=== PATIENT | female | born 2000 | race Caucasian/White ===

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

== ENCOUNTER 2019-01-11 14:39 | Emergency (ER) | payer MEDICAID ==
[~2019-01-11] VITALS: Ht 162.6 cm; Wt 84.5 kg
--- NOTE | 2019-01-11 15:08 | NUR ---
Pt states that she does have head pain. Now has started to mention chest and back pain. Pt advised that she went to [facility] several days ago and was sent to a surg. currently waiting on approval from insurance.
[2019-01-11] MEDS ORDERED: ketorolac tromethamine 15mg/ml inj. IM ONE (15:40)
--- NOTE | 2019-01-11 15:55 | NUR ---
Addie schmitt in EDM - 01/11/19 at 1559 by NIKOLAI UA pediatric bag placed at this time per PA order.
[2019-01-11 16:29] LABS: URINE HCG NEGATIVE (NEG)
[2019-01-11 16:43] VITALS: BP 116/77
== END 2019-01-11 16:44 | disposition home or self-care (01) ==
LOC: ER 14:39
DX: G43.909 Migraine, unspecified, not intractable, without status migrainosus (principal); F17.200 Nicotine dependence, unspecified, uncomplicated; F12.90 Cannabis use, unspecified, uncomplicated; Z90.49 Acquired absence of other specified parts of digestive tract; Z79.899 Other long term (current) drug therapy
CPT/HCPCS: 81025; 96372; 99283; J1885

== ENCOUNTER 2019-03-25 11:03 | Emergency (ER) | payer MEDICAID ==
[~2019-03-25] VITALS: Ht 170.2 cm; Wt 79.0 kg
--- NOTE | 2019-03-25 11:28 | NUR ---
patient reports abdominal pain at this time.
[2019-03-25 11:42] LABS: BASOPHILS % (AUTO) 0.4 % (0-1); EOSINOPHILS # (AUTO) 0.2 X10'3 (0-0.9); EOSINOPHILS % (AUTO) 1.9 % (0-6); HEMATOCRIT 37.4 % (35.0-45.0); HEMOGLOBIN 12.7 g/dl (12.0-16.0); LYMPHOCYTES # (AUTO) 2.9 X10'3 (1.1-4.8); LYMPHOCYTES % (AUTO) 28.2 % (21-51); MEAN CORPUSCULAR HEMOGLOBIN 29.6 PG (27.0-31.0); MEAN CORPUSCULAR VOLUME 87.2 FL (78-98); MEAN PLATELET VOLUME 8.3 FL (7.4-10.4); MONOCYTES # (AUTO) 0.5 X10'3 (0-0.9); MONOCYTES % (AUTO) 5.1 % (2-12); NEUTROPHILS # (AUTO) 6.7 X10'3 (1.8-7.7); NEUTROPHILS % (AUTO) 64.4 % (42-75); PLATELET COUNT 214 X10'3 (140-440); RED BLOOD COUNT 4.29 X10'6 (4.20-5.60); RED CELL DISTRIBUTION WIDTH 13.8 % (11.5-14.5); WHITE BLOOD COUNT 10.5 X10'3 (4.5-11.0)
[2019-03-25 11:57] LABS: ALANINE AMINOTRANSFERASE 28 U/L (12-78); ALBUMIN 3.6 G/DL (3.4-5.0); ALBUMIN/GLOBULIN RATIO 1.3 (1.1-1.5); ALKALINE PHOSPHATASE 52 IU/L (20-180); ANION GAP 12 (8-16); ASPARTATE AMINO TRANSFERASE 12 U/L (10-37); BILIRUBIN,TOTAL 0.4 MG/DL (0.1-1.0); BLOOD UREA NITROGEN 13 MG/DL (7-18); BUN/CREATININE RATIO 15.1 (6.6-38.0); CALCIUM 8.5 MG/DL (8.5-10.1); CHLORIDE 105 MMOL/L (99-107); CREATININE 0.86 MG/DL (0.40-0.90); GLUCOSE 98 MG/DL (70-104); LIPASE 64 U/L (73-393); POTASSIUM 3.5 MMOL/L (3.5-5.1); SODIUM 138 MMOL/L (135-145); TOTAL CARBON DIOXIDE 20.6 MMOL/L (24-32); TOTAL PROTEIN 6.4 G/DL (6.4-8.2); eGFR 84 ML/MIN
[2019-03-25 13:09] LABS: CLARITY,URINE SLIGHTLY CLOUDY (Clear); COLOR,URINE STRAW (Yellow); GLUCOSE, URINE NEGATIVE (Neg); KETONES,URINE NEGATIVE (Neg); LEUKOCYTE ESTERASE ,URINE NEGATIVE (Neg); NITRITES, URINE NEGATIVE (Neg); OCCULT BLOOD,URINE TRACE-INTACT (Neg); PH,URINE 7.5 (4.8-8.0); PROTEIN,URINE NEGATIVE (Neg); URINE HCG NEGATIVE (NEG); UROBILINOGEN,URINE 0.2 E.U/dL (0.2-1.0)
[2019-03-25 13:10] LABS: UA COLLECTION TYPE CLN CATCH MIDSTREAM
[2019-03-25 13:16] LABS: BACTERIA,URINE 2+ /HPF (Neg); RBC,URINE 0-2 /HPF (0-2); SQUAMOUS EPITHELIAL CELL,UR MANY /LPF (FEW); WBC,URINE 0-4 /HPF (0-4)
[2019-03-25 13:17] LABS: MUCUS STRANDS NONE SEEN /LPF (Neg)
[2019-03-25 13:18] VITALS: BP 103/45
== END 2019-03-25 13:19 | disposition home or self-care (01) ==
LOC: ER 11:03
DX: R07.89 Other chest pain (principal); R05 Cough; R10.84 Generalized abdominal pain; F17.200 Nicotine dependence, unspecified, uncomplicated; F12.90 Cannabis use, unspecified, uncomplicated; F10.99 Alcohol use, unspecified with unspecified alcohol-induced disorder; Z90.49 Acquired absence of other specified parts of digestive tract; Z79.899 Other long term (current) drug therapy; Y90.9 Presence of alcohol in blood, level not specified
CPT/HCPCS: 36415; 71045; 80053; 81001; 81025; 83690; 84484; 85025; 93005; 99284

== ENCOUNTER 2019-04-27 02:02 | Emergency (ER) | payer MEDICAID ==
[~2019-04-27] VITALS: Ht 162.6 cm; Wt 87.0 kg
[2019-04-27 02:04] VITALS: BP 123/74
--- NOTE | 2019-04-27 02:30 | NUR ---
DR. RAMIREZ AT BEDSIDE ASSESSING PATIENT
[2019-04-27] MEDS ORDERED: VALA10002 PO (02:46)
[2019-04-27] MEDS ORDERED: CEPH500C5 PO (02:46)
[2019-04-27] MEDS ORDERED: cephalexin 250mg capsule PO ONE (02:50)
[2019-04-27] MEDS ORDERED: valacyclovir 500mg tablet PO ONE (02:50)
[2019-04-27] MEDS ORDERED: valacyclovir 500mg tablet PO SCH (02:50)
== END 2019-04-27 03:13 | disposition home or self-care (01) ==
LOC: ER 02:03
DX: K13.0 Diseases of lips (principal); F17.200 Nicotine dependence, unspecified, uncomplicated; F12.90 Cannabis use, unspecified, uncomplicated; Z79.2 Long term (current) use of antibiotics; Z79.899 Other long term (current) drug therapy; Z90.49 Acquired absence of other specified parts of digestive tract
CPT/HCPCS: 99283

== ENCOUNTER 2019-06-17 17:51 | Emergency (ER) | payer MEDICAID ==
[~2019-06-17] VITALS: Ht 162.6 cm; Wt 86.4 kg
[~2019-06-17 17:51] MED LIST changes: +CEPH500C5 PO; +VALA10002 PO
[2019-06-17 18:57] VITALS: BP 116/67
== END 2019-06-17 18:59 | disposition home or self-care (01) ==
LOC: ER 17:51
DX: J06.9 Acute upper respiratory infection, unspecified (principal); F12.90 Cannabis use, unspecified, uncomplicated; Z72.89 Other problems related to lifestyle; Z90.49 Acquired absence of other specified parts of digestive tract; Z79.899 Other long term (current) drug therapy
CPT/HCPCS: 99281

== ENCOUNTER 2019-08-01 17:19 | Emergency (ER) | payer MEDICAID ==
[~2019-08-01] VITALS: Ht 162.6 cm; Wt 81.8 kg
[2019-08-01 17:39] VITALS: BP 199/171
[2019-08-02] MEDS ORDERED: ONDA4TAB6 PO (15:48)
[2019-08-02] MEDS ORDERED: DICY10CA88 PO (15:48)
== END 2019-08-01 20:17 | disposition left against medical advice (07) ==
LOC: ER 17:20
DX: R10.30 Lower abdominal pain, unspecified (principal); Z53.21 Procedure and treatment not carried out due to patient leaving prior to being seen by health care provider

== ENCOUNTER 2019-08-02 12:26 | Emergency (ER) | payer MEDICAID ==
[~2019-08-02] VITALS: Ht 162.6 cm; Wt 81.8 kg
[2019-08-02 13:02] LABS: BASOPHILS % (AUTO) 0.1 % (0-1); EOSINOPHILS # (AUTO) 0.1 X10'3 (0-0.9); EOSINOPHILS % (AUTO) 0.8 % (0-6); HEMATOCRIT 48.9 % (35.0-45.0); HEMOGLOBIN 16.4 g/dl (12.0-16.0); LYMPHOCYTES # (AUTO) 1.7 X10'3 (1.1-4.8); LYMPHOCYTES % (AUTO) 9.9 % (21-51); MEAN CORPUSCULAR HEMOGLOBIN 29.4 PG (27.0-31.0); MEAN CORPUSCULAR HGB CONC 33.5 g/dL (33.0-36.5); MEAN CORPUSCULAR VOLUME 87.8 FL (78-98); MEAN PLATELET VOLUME 8.3 FL (7.4-10.4); MONOCYTES # (AUTO) 0.9 X10'3 (0-0.9); MONOCYTES % (AUTO) 5.6 % (2-12); NEUTROPHILS % (AUTO) 83.6 % (42-75); PLATELET COUNT 303 X10'3 (140-440); RED BLOOD COUNT 5.56 X10'6 (4.20-5.60); RED CELL DISTRIBUTION WIDTH 13.7 % (11.5-14.5); WHITE BLOOD COUNT 16.7 X10'3 (4.5-11.0)
[2019-08-02 13:15] LABS: ALANINE AMINOTRANSFERASE 16 U/L (12-78); ALBUMIN/GLOBULIN RATIO 1.1 (1.1-1.5); ALKALINE PHOSPHATASE 67 IU/L (20-180); ANION GAP 13 (8-16); ASPARTATE AMINO TRANSFERASE 13 U/L (10-37); BILIRUBIN,TOTAL 0.4 MG/DL (0.1-1.0); BLOOD UREA NITROGEN 11 MG/DL (7-18); BUN/CREATININE RATIO 11.2 (6.6-38.0); CALCIUM 9.6 MG/DL (8.5-10.1); CHLORIDE 106 MMOL/L (99-107); CREATININE 0.98 MG/DL (0.40-0.90); GLUCOSE 114 MG/DL (70-104); LIPASE 75 U/L (73-393); POTASSIUM 4.3 MMOL/L (3.5-5.1); SODIUM 138 MMOL/L (135-145); TOTAL CARBON DIOXIDE 18.7 MMOL/L (24-32); TOTAL PROTEIN 7.8 G/DL (6.4-8.2); eGFR 72 ML/MIN
[2019-08-02] MEDS ORDERED: haloperidol lactate 5mg/ml inj IM ONE (13:25)
[2019-08-02] MEDS ORDERED: dicyclomine 10 MG capsule PO ONE (13:25)
[2019-08-02] MEDS ORDERED: normal saline 1000ML IV soln IVB ONE (13:25)
[2019-08-02] MEDS ORDERED: ketorolac tromethamine 15mg/ml inj. IV ONE (13:25)
[2019-08-02] MEDS ORDERED: ketorolac tromethamine 15mg/ml inj. IM ONE (14:20)
[2019-08-02] MEDS ORDERED: DICY10CA88 PO (15:48)
[2019-08-02] MEDS ORDERED: ONDA4TAB6 PO (15:48)
[2019-08-02 17:35] VITALS: BP 107/57
== END 2019-08-02 16:30 | disposition home or self-care (01) ==
LOC: ER 12:26
DX: R11.2 Nausea with vomiting, unspecified (principal); R10.31 Right lower quadrant pain; R10.32 Left lower quadrant pain; F12.90 Cannabis use, unspecified, uncomplicated; F17.200 Nicotine dependence, unspecified, uncomplicated; Z90.49 Acquired absence of other specified parts of digestive tract
CPT/HCPCS: 36415; 80053; 83690; 85025; 96372; 96374; 99284; J1630; J1885; J7030

== ENCOUNTER 2020-08-05 00:14 | Emergency (ER) | payer MEDICAID ==
[~2020-08-05] VITALS: Ht 162.6 cm; Wt 63.6 kg
[~2020-08-05 00:14] MED LIST changes: -CEPH500C5 PO; +ONDA4TAB6 PO
[2020-08-05 00:23] VITALS: BP 121/71
[2020-08-05] MEDS ORDERED: DOXY100C43 PO (00:48)
[2020-08-05 01:24] LABS: URINE HCG NEGATIVE (NEG)
[2020-08-05] MEDS ORDERED: DOXYCYCLINE 100MG CAPSULE PO STA (01:41)
== END 2020-08-05 01:52 | disposition home or self-care (01) ==
LOC: ER 00:14
DX: S90.822A Blister (nonthermal), left foot, initial encounter (principal); L03.116 Cellulitis of left lower limb; F12.90 Cannabis use, unspecified, uncomplicated; Z90.49 Acquired absence of other specified parts of digestive tract; Z72.89 Other problems related to lifestyle; Z79.899 Other long term (current) drug therapy; X58.XXXA Exposure to other specified factors, initial encounter; Y93.89 Activity, other specified; Y92.89 Other specified places as the place of occurrence of the external cause; Y99.8 Other external cause status
CPT/HCPCS: 81025; 99283

== ENCOUNTER 2020-11-15 21:41 | Emergency (ER) | payer MEDICAID ==
[~2020-11-15] VITALS: Ht 162.6 cm; Wt 77.0 kg
[2020-11-15] MEDS ORDERED: ketorolac trometh. 30mg/ml inj. IV ONE (21:45)
[2020-11-15 21:57] VITALS: BP 105/60
[2020-11-15] MEDS ORDERED: iohexol 300mg/ml 100ml inj. ONE (22:02)
--- NOTE | 2020-11-15 22:08 | NUR ---
pt asked to provide urine sample. she states she "can't go" - advised pt to please try so that we can r\\o before sending her to the CT scan. She continues to state she "can't go" - pt was again asked to simply try. She stands up and says, "this is fucked up" but goes to the bathroom and returns with a sample. urine sent to lab.
[2020-11-15 22:14] LABS: LIPASE 54 U/L (73-393)
[2020-11-15 22:15] LABS: HCG SERUM QL NEGATIVE
[2020-11-15 22:20] LABS: URINE AMPHETAMINE SCREEN POSITIVE (Neg); URINE CANNABINOID SCREEN POSITIVE (Neg); URINE METHADONE SCREEN NEGATIVE (Neg); URINE OPIATE SCREEN POSITIVE (Neg); URINE PHENCYCLIDINE SCREEN NEGATIVE (Neg)
[2020-11-15 22:30] LABS: URINE BARBITUATE SCREEN NEGATIVE (Neg); URINE BENZODIAZEPINES SCREEN NEGATIVE (Neg); URINE COCAINE SCREEN NEGATIVE (Neg)
[2020-11-15] MEDS ORDERED: iohexol 300 MG/1 ML 50ml polymer ONE (22:35)
--- NOTE | 2020-11-15 22:42 | NUR ---
pt went to CT but was brought back to the room by CT stating that she was having burning at the IV site. The IV is patent and flushed with 30cc saline and also will draw back with blood. a second IV was started in the opposite arm which produced good flash and also flushed. Pt stated that this IV was burning as well. The first IV was then flushed again with 40cc of saline. no infiltration noted, no redness or swelling at insertion site. the second IV was removed and the first IV will be used for CT - analytical lab technician also stated that the IV flushed well prior to start of scan.
--- NOTE | 2020-11-15 23:53 | NUR ---
PT NOT COOPERATIVE WITH D\C - SECURITY HAD TO BE CALLED TO ESCORT PT TO LOBBY - SHE HAS BEEN OFFERED A TAXI TO A LOCATION OF HER CHOICE AND TOLD TO LET US KNOW WHEN SHE CAN COME UP WITH A PLAN.
== END 2020-11-15 23:59 | disposition home or self-care (01) ==
LOC: ER 21:41 → EEVIPCON 21:41 → ER 23:59
DX: S30.1XXA Contusion of abdominal wall, initial encounter (principal); R10.30 Lower abdominal pain, unspecified; F12.90 Cannabis use, unspecified, uncomplicated; Z90.89 Acquired absence of other organs; Z90.49 Acquired absence of other specified parts of digestive tract; Z72.89 Other problems related to lifestyle; Z79.2 Long term (current) use of antibiotics; Z79.899 Other long term (current) drug therapy; Y08.89XA Assault by other specified means, initial encounter; Y93.89 Activity, other specified; Y92.89 Other specified places as the place of occurrence of the external cause; Y99.8 Other external cause status
CPT/HCPCS: 36415; 74177; 80305; 83690; 84703; 96374; 99285; J1885; Q9967

== ENCOUNTER 2021-04-23 09:25 | Emergency (ER) | payer MEDICAID ==
[~2021-04-23] VITALS: Ht 160 cm; Wt 77.0 kg
--- NOTE | 2021-04-23 09:52 | NUR ---
CALLED PT TO TRIAGE, WAS IN BATHROOM. AFTER 15 MINUTES OR SO STILL NOT IN LOBBY. SSECURITY CALLED, RESTROOM WAS EMPTY
[2021-04-23 10:10] VITALS: BP 131/73
[2021-04-23] MEDS ORDERED: LIDOcaine 1% W/epiNEPHrine 1:200,000 10ml vial IJ ONE (11:35)
[2021-04-23] MEDS ORDERED: LIDOcaine 1% 30ml preserv. free vial IJ ONE (12:35)
[2021-04-23] MEDS ORDERED: DOXY100C43 PO ×2 (14:15)
[2021-04-23] MEDS ORDERED: DOXY100C76 PO (14:19)
== END 2021-04-23 15:30 | disposition home or self-care (01) ==
LOC: ER 09:26
DX: L02.511 Cutaneous abscess of right hand (principal); F12.90 Cannabis use, unspecified, uncomplicated; Z90.89 Acquired absence of other organs; Z90.49 Acquired absence of other specified parts of digestive tract; Z72.89 Other problems related to lifestyle; Z79.2 Long term (current) use of antibiotics; Z79.899 Other long term (current) drug therapy
CPT/HCPCS: 26010; 99283

== ENCOUNTER 2021-04-25 00:06 | Emergency (ER) | payer MEDICAID ==
[~2021-04-25] VITALS: Ht 162.6 cm; Wt 70.0 kg
[~2021-04-25 00:06] MED LIST changes: +DOXY100C43 PO; +DOXY100C76 PO
[2021-04-25 00:50] VITALS: BP 128/75
--- NOTE | 2021-04-25 07:01 | NUR ---
PT STATES SHE WAS GIVEN A RX FOR ABX 2 DAYS AGO WHEN SHE WAS LAST HERE BUT WAS NOT CORRINA TO PICK IT UP BECAUSE "THE PHARMACY SAID IT WAS CHARGED TO ANOTHER PHARMACY." PT IS REQUESTING TO KNOW WERE WE SENT IT. I EXPLAINED THAT THE DR SENDS THE RX TO THE PHARMACY OF HER REQUEST, PT STATES SHE DOESNT REMEMBER AND "SAYS IT WILL BE EASIER IF WE JUST FIGURE IT OUT."
[2021-04-25] MEDS ORDERED: SULF1TAB49 PO (07:34)
[2021-04-25] MEDS ORDERED: sulfamethoxazole/trimethoprim DS (800/160mg) tablet PO ONE (07:35)
== END 2021-04-25 07:51 | disposition home or self-care (01) ==
LOC: ER 00:07
DX: L03.011 Cellulitis of right finger (principal); F12.90 Cannabis use, unspecified, uncomplicated; Z90.89 Acquired absence of other organs; Z90.49 Acquired absence of other specified parts of digestive tract; Z72.89 Other problems related to lifestyle; Z79.2 Long term (current) use of antibiotics; Z79.899 Other long term (current) drug therapy
CPT/HCPCS: 99283

== ENCOUNTER 2021-08-22 22:51 | Emergency (ER) | payer MEDICAID ==
[~2021-08-22 22:51] MED LIST changes: -DOXY100C43 PO; -DOXY100C76 PO
== END 2021-08-22 23:23 | disposition left against medical advice (07) ==
LOC: ER 22:51
DX: K59.00 Constipation, unspecified (principal); Z53.21 Procedure and treatment not carried out due to patient leaving prior to being seen by health care provider

== ENCOUNTER 2021-09-07 23:49 | Emergency (ER) | payer MEDICAID ==
[~2021-09-07] VITALS: Ht 162.6 cm; Wt 90.5 kg
[2021-09-08 07:05] VITALS: BP 103/55
[2021-09-08] MEDS ORDERED: ACET500C5 PO (09:52)
[2021-09-08] MEDS ORDERED: IBUP-1985 PO (09:52)
[2021-09-08] MEDS ORDERED: CEPH-585 PO (09:52)
== END 2021-09-08 07:13 | disposition left against medical advice (07) ==
LOC: ER 23:50
DX: M79.604 Pain in right leg (principal); M79.605 Pain in left leg; Z53.21 Procedure and treatment not carried out due to patient leaving prior to being seen by health care provider

== ENCOUNTER 2021-09-08 07:14 | Emergency (ER) | payer MEDICAID ==
[~2021-09-08] VITALS: Ht 162.6 cm; Wt 90.5 kg
[2021-09-08] MEDS ORDERED: ketorolac trometh. 30mg/ml inj. IM ONE (09:10)
[2021-09-08] MEDS ORDERED: acetaminophen 325mg tablet PO ONE (09:10)
[2021-09-08 09:26] VITALS: BP 100/62
[2021-09-08] MEDS ORDERED: CEPH-585 PO (09:52)
[2021-09-08] MEDS ORDERED: IBUP-1985 PO (09:52)
[2021-09-08] MEDS ORDERED: ACET500C5 PO (09:52)
== END 2021-09-08 10:16 | disposition home or self-care (01) ==
LOC: ER 07:14
DX: L55.9 Sunburn, unspecified (principal); L03.116 Cellulitis of left lower limb; F17.200 Nicotine dependence, unspecified, uncomplicated; F12.90 Cannabis use, unspecified, uncomplicated; F15.90 Other stimulant use, unspecified, uncomplicated; Z90.49 Acquired absence of other specified parts of digestive tract; Z72.89 Other problems related to lifestyle; Z79.899 Other long term (current) drug therapy
CPT/HCPCS: 96372; 99283; J1885

== ENCOUNTER 2021-10-25 06:23 | Emergency (ER) | payer MEDICAID ==
[~2021-10-25] VITALS: Ht 162.6 cm; Wt 72.7 kg
[~2021-10-25 06:23] MED LIST changes: +IBUP-1985 PO
[2021-10-25 06:27] VITALS: BP 143/89
== END 2021-10-25 09:34 | disposition left against medical advice (07) ==
LOC: ER 06:25
DX: Z00.8 Encounter for other general examination (principal); Z53.21 Procedure and treatment not carried out due to patient leaving prior to being seen by health care provider

== ENCOUNTER 2024-01-30 14:49 | Emergency (ER) | payer MEDICAID ==
[~2024-01-30] VITALS: Ht 162.6 cm; Wt 77.3 kg
[2024-01-30] MEDS ORDERED: AMOX500C2 PO (15:30)
[2024-01-30] MEDS: ibuprofen tablet 400 MG TABLET PO ONE (15:33)
[2024-01-30] MEDS: amoxicillin 250mg capsule PO ONE (15:34)
[2024-01-30 15:51] VITALS: BP 118/78; PULSE 101; RESP 19; TEMP 98.7; O2SAT 98
== END 2024-01-30 15:56 | disposition home or self-care (01) ==
LOC: ER 14:49
DX: K04.7 Periapical abscess without sinus (principal); K03.81 Cracked tooth; K02.9 Dental caries, unspecified; F12.90 Cannabis use, unspecified, uncomplicated; F15.90 Other stimulant use, unspecified, uncomplicated; Z79.2 Long term (current) use of antibiotics; Z79.1 Long term (current) use of non-steroidal anti-inflammatories (NSAID); Z98.890 Other specified postprocedural states; Z90.49 Acquired absence of other specified parts of digestive tract
CPT/HCPCS: 99283

== ENCOUNTER 2024-04-15 14:25 | Emergency (ER) | payer MEDICAID ==
[~2024-04-15] VITALS: Ht 162.6 cm; Wt 87.9 kg
[2024-04-15 14:27] VITALS: BP 128/73; PULSE 70; O2SAT 98
[2024-04-15] MEDS ORDERED: BUPR1FIL7 SL (15:39)
[2024-04-15] MEDS ORDERED: TRAZ-251 PO (15:40)
[2024-04-15 16:06] VITALS: RESP 16; TEMP 98
[2024-04-16] MEDS ORDERED: BUPR8TAB4 SL (14:44)
== END 2024-04-15 16:08 | disposition home or self-care (01) ==
LOC: ER 14:26
DX: F11.20 Opioid dependence, uncomplicated (principal); Z76.0 Encounter for issue of repeat prescription; G47.00 Insomnia, unspecified; F12.90 Cannabis use, unspecified, uncomplicated; F15.90 Other stimulant use, unspecified, uncomplicated; Z90.49 Acquired absence of other specified parts of digestive tract; Z79.899 Other long term (current) drug therapy
CPT/HCPCS: 99281

== ENCOUNTER 2024-04-16 14:01 | Emergency (ER) | payer MEDICAID ==
[~2024-04-16] VITALS: Ht 162.6 cm; Wt 85.3 kg
[~2024-04-16 14:01] MED LIST changes: +BUPR1FIL7 SL; +TRAZ-251 PO
[2024-04-16 14:15] VITALS: BP 111/67; PULSE 87; RESP 18; TEMP 98.3; O2SAT 99
[2024-04-16] MEDS ORDERED: BUPR8TAB4 SL (14:44)
== END 2024-04-16 14:50 | disposition home or self-care (01) ==
LOC: ER 14:01
DX: F11.20 Opioid dependence, uncomplicated (principal); F12.90 Cannabis use, unspecified, uncomplicated; F15.90 Other stimulant use, unspecified, uncomplicated; Z76.0 Encounter for issue of repeat prescription; Z90.49 Acquired absence of other specified parts of digestive tract
CPT/HCPCS: 99281; 99283

== ENCOUNTER 2024-08-08 03:10 | Emergency (ER) | payer MEDICAID ==
[~2024-08-08] VITALS: Ht 162.6 cm; Wt 80.3 kg
--- NOTE | 2024-08-08 03:33 | Physician Documentation ---
History of Present Illness ~ Chief Complaint: Sore Throat Stated Complaint: THROAT PAIN Time Seen by MD: 03:25 Primary Medical Doctor: Clemente Fair In [facility] Patient presents today with sore throat. Ongoing over the last 24 hours. Denies fever. Medication Reconciliation Allergies: Coded Allergies: No Known Allergies (Unverified , 04/16/24) Scheduled Buprenorphine HCl/Naloxone HCl (Suboxone 12 mg-3 mg Sl Film), 1 STRIP SL BID Ibuprofen (Ibuprofen), 1 TAB PO Q8H Ondansetron Hcl (Zofran), 1 TAB PO Q12H PRN Trazodone HCl (Trazodone HCl), 1 TAB PO HS Valacyclovir HCl (Valtrex), 2 TAB PO ONCE Scheduled PRN Hydrocodone Bit/Acetaminophen (Hydrocodon-Acetaminophn 10-325 tablet), 1 TAB PO Q4H PRN for pain Miscellaneous Medications Home Med List (No Home Medications), (Reported) Past Medical History Past Medical History: No Pertinent History Past Surgical History: appendectomy, cholecystectomy Alcohol Use: Occasionally Drug Use: marijuana, methamphetamine Lives with: Family Occupation: employed, child Review of Systems All Other Systems at this time: Reviewed and Negative Constitutional: Denies: chills, fever Eyes: Denies: pain ENT: Reports: throat pain; Denies: ear pain Respiratory: Reports: cough Gastrointestinal: Denies: abdomen distended, abdominal pain Physical Exam Vital Signs: Temperature: 97.6, Source: Oral, Heart Rate: 95, Respiratory Rate: 18, BP: 117/78, Pulse Oximetry: 99, Weight: 80.300 Oxygen Flow Rate: 0 Physical Exam Well-appearing no distress HEENT bilateral tonsillar exudate No peritonsillar abscess no trismus Progress Results/Orders Results/Orders Orders - CRISTINA INGRAM MD Cult Throat + R/O Beta Strep (08/08/24 04:29) Completed Orders - CRISTINA INGRAM MD Ketorolac Trometh 15mg/Ml Vial (Toradol (08/08/24 03:40) Strep A Rapid (08/08/24 03:36) Lidocaine 2% Viscous (Xylocaine 2% Visco (08/08/24 03:40) Medications Received in ER Medications (Trade) Dose Ordered Sig/Alberto Route PRN Reason Start Time Stop Time Status Last Admin Dose Admin (Toradol injection) 30 mg ONCE ONCE IM 08/08/24 03:40 08/08/24 03:42 DC 08/08/24 03:57 30 MG (Xylocaine 2% Viscous 15mL cup) 15 ml ONCE ONCE MM 08/08/24 03:40 08/08/24 03:41 DC 08/08/24 03:53 15 ML Vital Signs 08/08/24 08/08/24 08/08/24 08/08/24 03:21 03:31 03:33 03:33 Temp 97.6 97.6 Pulse 95 88 Resp 18 17 14 B/P (MAP) 117/78 125/95 (105) Pulse Ox 99 99 O2 Flow Rate 0 0 08/08/24 03:57 Resp 14 Laboratory Tests Test 08/08/24 03:47 Group A Streptococcus Rapid Negative Medical Decision Making Additional Comment Considered strep pharyngitis, mononucleosis, HIV, herpes simplex virus, Bechets , oral aphthous ulcers Departure Disposition: HOME / SELF CARE / HOMELESS Impression: Primary Impression: URI (upper respiratory infection) Qualified Codes: J06.9 - Acute upper respiratory infection, unspecified Additional Impression Text Well-appearing 24-year-old with a sore throat. Tonsillar exudate, no rash, no ocular involvement, no fevers benign-appearing no trismus no peritonsillar abscess. Strep negative. Conservative management Referrals: NO PRIMARY CARE PROVIDER (PCP) Signature Scribe Signature: na Attestation: CRISTINA Jara MD August 08, 2024 03:32
[2024-08-08] MEDS: LIDOcaine 2% Viscous 15ml cup MM ONE (03:53)
[2024-08-08] MEDS: ketorolac trometh 15mg/ml vial 15 MG/ML ML IM ONE (03:57)
[2024-08-08 04:29] LABS: STREP A SCREEN NEGATIVE (Neg)
[2024-08-08 05:13] VITALS: BP 120/78; PULSE 77; RESP 19; TEMP 98; O2SAT 100
== END 2024-08-08 05:22 | disposition home or self-care (01) ==
LOC: ER 03:11
DX: J06.9 Acute upper respiratory infection, unspecified (principal); F12.90 Cannabis use, unspecified, uncomplicated; F15.90 Other stimulant use, unspecified, uncomplicated; Z90.49 Acquired absence of other specified parts of digestive tract; Z79.899 Other long term (current) drug therapy; Z72.89 Other problems related to lifestyle
CPT/HCPCS: 87081; 87880; 96372; 99283; J1885

== ENCOUNTER 2024-11-04 20:55 | Emergency (ER) | payer MEDICAID ==
[~2024-11-04] VITALS: Ht 162.6 cm; Wt 81.8 kg
[2024-11-04 21:04] VITALS: BP 125/74; PULSE 101; O2SAT 100
[2024-11-04] MEDS: LIDOcaine 1% W/epiNEPHrine 1:100,000 20ml vial SQ ONE (23:49)
[2024-11-05 00:43] VITALS: TEMP 97
[2024-11-05] MEDS ORDERED: HYDR-3973 PO (01:12)
[2024-11-05] MEDS ORDERED: SULF1TAB49 PO (01:12)
--- NOTE | 2024-11-05 01:13 | Physician Documentation ---
History of Present Illness ~ Chief Complaint: Abscess Stated Complaint: OPEN SORES Time Seen by MD: 01:07 Primary Medical Doctor: Clemente Fair In Source: patient Mode of Arrival: POV Exam Limitations: no limitations HPI Chief Complaint: Abscess Caveat: None Independent Historians: None History of Present Illness: Patient is a 24-year-old woman who comes in complaining of an abscess in her left axilla and right proximal medial thigh. Patient has a couple areas that she states are already draining because she popped them. Patient denies any fever. Pain is moderate and constant. Review of systems: All systems were reviewed and are negative except for what is indicated in the history of present illness. Past Medical History: None Past Surgical History: None Social History: No tobacco use, no alcohol use, no drug use Medications: Reviewed as documented Nursing Notes Allergies: Reviewed as documented in Nursing Notes Tetanus Within 5 Years: No Medication Reconciliation Allergies: Coded Allergies: No Known Allergies (Unverified , 11/04/24) Scheduled Buprenorphine HCl/Naloxone HCl (Suboxone 12 mg-3 mg Sl Film), 1 STRIP SL BID Ibuprofen (Ibuprofen), 1 TAB PO Q8H Ondansetron Hcl (Zofran), 1 TAB PO Q12H PRN Sulfamethoxazole/Trimethoprim (Bactrim Ds Tablet), 1 TAB PO Q12H Trazodone HCl (Trazodone HCl), 1 TAB PO HS Valacyclovir HCl (Valtrex), 2 TAB PO ONCE Scheduled PRN Hydrocodone Bit/Acetaminophen (Hydrocodon-Acetaminophn 10-325 tablet), 1 TAB PO Q4H PRN for pain Hydrocodone Bit/Acetaminophen (Hydrocodone-Apap 10-325 Tablet), 1 TAB PO TID PRN PRN for pain Miscellaneous Medications Home Med List (No Home Medications), (Reported) Past Medical History Past Medical History: No Pertinent History Past Surgical History: appendectomy, cholecystectomy Smoking Status: Current every day smoker Alcohol Use: Occasionally Drug Use: marijuana, methamphetamine Lives with: Family Occupation: employed, child Review of Systems All Other Systems at this time: Reviewed and Negative ROS Patient denies any other acute symptoms other than above. All other systems are negative Physical Exam Vital Signs: RN Vital Signs have been reviewed: Yes, Temperature: 97.0, Heart Rate: 101, Respiratory Rate: 16, BP: 125/74, Pulse Oximetry: 100, Weight: 81.820 Pulse Oximetry Reflects: adequate oxygenation Physical Exam General Appearance: Mild distress HEENT: Normal OP, moist oral mucosa, PERRL, EOMI Neck: supple, normal ROM, trachea midline Pulmonary: No respiratory distress, CTA, BS equal Cardiac: RRR, no murmur, rub or gallop, Extremities: normal ROM, no swelling, non-tender Skin: intact, dry, warm, no rashes, swollen erythematous and indurated abscess in the right axilla. Small area of erythema without fluctuance the right medial proximal thigh Neuro: AAOx3, speech is clear, no focal motor weakness Psych: normal affect, good eye contact, no apparent hallucination, normal speech Procedures I & D Procedure : Anesthesia: Lidocaine w/ Epi Volume Anesthetic (mls): 5 Blade Size: 11 Prep/Supplies: betadine prep, packing placed Incision: pus drained, blood drained Tolerated Procedure Well?: yes, no complications Progress Results/Orders Results/Orders Completed Orders - ELIZABETH HAMPTON MD Sulfamethox/Trimetho. Ds Tab (Septra Ds (11/05/24 01:10) Ketorolac Trometh 15mg/Ml Vial (Toradol (11/05/24 01:10) Medications Received in ER Medications (Trade) Dose Ordered Sig/Alberto Route PRN Reason Start Time Stop Time Status Last Admin Dose Admin (Septra DS tab) 1 tab ONCE ONCE PO 11/05/24 01:10 11/05/24 01:11 DC 11/05/24 01:20 1 TAB (Toradol injection) 15 mg ONCE ONCE IM 11/05/24 01:10 11/05/24 01:12 DC 11/05/24 01:21 15 MG Vital Signs 11/04/24 11/05/24 11/05/24 21:04 00:43 01:21 Temp 97.0 97.0 Pulse 101 Resp 16 18 B/P (MAP) 125/74 Pulse Ox 100 Medical Decision Making Findings Differential diagnosis includes but is not limited to: Abscesses, cellulitis, phlegmon Emergency department course/medical decision-making: Patient presents with an abscess in the right axilla that has drained and packed. Patient has a couple other small early abscesses that have either already drained or not fluctuant. These other areas do not need drainage. Patient is started on Bactrim here. She is given a prescription for Bactrim and [place]. Patient is stable for discharge. Instructed to return for packing removal. Departure Time of Disposition: 01:11 Disposition: 01 HOME / SELF CARE / HOMELESS Impression: Primary Impression: Abscess of right axilla Condition: Stable Discharge Instructions: Abscess, Care After, Incision and Drainage Additional Instructions: RETURN TO THE ER IF YOUR SYMPTOMS WORSEN. RETURN TO THE ER IN 2-3 DAYS FOR PACKING REMOVAL. Prescriptions Hydrocodone Bit/Acetaminophen (Hydrocodone-Apap 10-325 Tablet) 10mg/325mg Tablet 1 TAB PO TID PRN PRN for pain, #5 TAB Prov: ELIZABETH HAMPTON MD 11/05/24 Sulfamethoxazole/Trimethoprim (Bactrim Ds Tablet) 800 Mg-160 Mg Tablet 1 TAB PO Q12H for 10 Days, #20 TAB Prov: ELIZABETH HAMPTON MD 11/05/24 Education Educated: Patient Educated regarding: diagnosis, treatment Signature Scribe Signature: No scribe Attestation: No scribe ELIZABETH HAMPTON MD Nov 05, 2024 01:13
[2024-11-05] MEDS: sulfamethoxazole/trimethoprim DS (800/160mg) tablet PO ONE (01:20)
[2024-11-05 01:21] VITALS: RESP 18
[2024-11-05] MEDS: ketorolac trometh 15mg/ml vial 15 MG/ML ML IM ONE (01:21)
== END 2024-11-05 01:25 | disposition home or self-care (01) ==
LOC: ER 20:56
DX: L02.411 Cutaneous abscess of right axilla (principal); F12.90 Cannabis use, unspecified, uncomplicated; F17.200 Nicotine dependence, unspecified, uncomplicated; F15.90 Other stimulant use, unspecified, uncomplicated; Z90.49 Acquired absence of other specified parts of digestive tract
CPT/HCPCS: 10060; 96372; 99283; A6266; A6407; J1885; A6449